=== PATIENT | male | born 1985 | race Caucasian/White ===

== ENCOUNTER 2023-09-14 03:34 | Day surgery (SDC) | payer OTHER, SELFPAY ==
[2023-09-03 14:57] VITALS: BMI 31.8
--- NOTE | 2023-09-03 15:02 | PC.NURSE ---
Report to the Outpatient Waiting Room, entrance under the green pavilion located off [facility], at time 0600 on date 09/14/23. Planned Procedure Time: 0730. Time changes happen often and if your time is changed the preop area will call you the afternoon before. - You and your visitor will be asked to self-screen and do not enter if you have any COVID symptoms. - A mask is optional within the hospital at this time. Patients may have clear liquids (water, carbonated beverages, clear teas, apple juice) until 3 hours prior to surgery with a maximum of 20 ounces. - No food from midnight until time of surgery Take the following medications with a SIP of water the morning of surgery: BUSPIRONE, METOPROLOL DO NOT STOP ANY OF YOUR OTHER PRESCRIPTION MEDICATIONS PRIOR TO SURGERY ?EXCEPT THE FOLLOWING Medications to discontinue per physician: N/A Date to take last dose: N/A Please no make-up, nail [facility] [place], hairspray, perfume, deodorant, or body powder the day of surgery. No jewelry (including any body piercings) or valuables the day of surgery, leave them at home. Please take a shower or bath the night before, or the morning of, surgery with an antibacterial soap. Wear comfortable, loose fitting clothing. - Jewelry must be removed prior to entering the operating room. Rings and piercings that are not removed may be cut off. - The hospital will not accept responsibility for valuables. - Please leave all valuables, including medications, at home the day of surgery. If you are going home after surgery, a licensed hazmat cdl driver must drive you home. - NO public transportation without another adult if you receive anesthesia. - We recommend that an adult stay with you for 24 hours following discharge. - We also recommend that you do not drive, make important decision, drink alcoholic beverages, or take any drugs that were not prescribed by your health care provider for at least 24 hours after your discharge time. Follow any additional instructions given to you from your surgeon. If you or anyone in your household have experienced Covid symptoms in the past week, please notify your surgeon or the nurse liaison at the phone number below for possible testing. Telephone instructions given to PT - ODALYS SCHULTZ and asked if any additional questions and then verbalized understanding. Patient advised to call surgeon office or pre surgery nurse liaison [phone] if any additional questions.
[2023-09-14] VITALS (8 sets, daily range): BP systolic 126–155; BP diastolic 71–106; PULSE 72–92; RESP 14–20; TEMP 36.2–36.6; O2SAT 97–100
[2023-09-14] MEDS: ACETAMINOPHEN 500 MG TABLET 1000 MG PO (06:36)
[2023-09-14] MEDS: LACTATED RINGERS 1,000 ML 30 ML IV CONT ×2 (06:40→09:05)
--- NOTE | 2023-09-14 07:09 | P.HP_ITS ---
H&P: HPI History of Present Illness Date/Time: 09/14/23 07:09 Chief Complaint: Left TM perforation Narrative: Left TM perforation Review of Systems Review of Systems: All systems reviewed & are unremarkable except as noted in HPI and below PMFSH Social History Social History Smoking status: Never smoker Alcohol intake: never Substance use: never Substance use type: does not use Living arrangements: with family Spiritual care concerns: No Meds Home Medications and Allergies Home Medications Medication Instructions Recorded Confirmed Type buspirone 30 mg tablet 30 mg PO DAILY 09/03/23 09/14/23 History losartan 100 mg tablet 100 mg PO DAILY 09/03/23 09/14/23 History metoprolol succinate 50 mg 50 mg PO DAILY 09/03/23 09/14/23 History tablet,extended release 24 hr omeprazole 20 mg tablet,delayed 20 mg PO DAILY 09/03/23 09/14/23 History release Allergies Allergy/AdvReac Type Severity Reaction Status Date / Time No Known Allergies Allergy Verified 09/14/23 06:22 Vital Signs Vital Signs - 24 hr 09/14/23 06:21 Temperature 36.6 C Pulse Rate 83 Respiratory Rate 20 Blood Pressure 150/106 H Pulse Oximetry 97 Oxygen Delivery Room Air Exam Narrative: 40-50% left TM perforation. No infectio n. rest of exam wnl Assessment and Plan Assessment and plan (1) Perforation of left tympanic membrane: Code(s): H72.92 - Unspecified perforation of tympanic membrane, left ear Status: Acute Assessment and Plan: Left TM perforation Plan Left tympanoplasty. r/b/a reviewed, pt understands and agrees to proceed. left ear marked. refer to outpt H&P for further detail.
--- NOTE | 2023-09-14 07:10 | WPDHPUPDATE1 ---
History and Physical Update Update Date/Time: 09/14/23 07:10 History and Physical has been reviewed, including an updated exam of the patient. There are NO changes in the patient's condition. Risks, benefits, and alternatives have been discussed and questions answered. Patient agrees to proceed with procedure.
--- NOTE | 2023-09-14 07:17 | WPDANESEPPF ---
Anes - Initial Pre Proc Eval Procedure: Operation Date: 09/14/23 07:30 Proposed Procedures p Left Ear Tympanoplasty - Benito Saunders MD Date/Time: 09/14/23 07:17 Surgeon: Benito Saunders MD Pre Op Diagnosis: Lt Ear Tympanic Perfor Patient Data Age: 38 Gender: M Height: 1.73 m Weight: 108.3 kg Last Vital Signs Temp 36.6 C 09/14/23 06:21 Pulse 83 09/14/23 06:21 Resp 20 09/14/23 06:21 BP 150/106 H 09/14/23 06:21 Pulse Ox 97 09/14/23 06:21 O2 Del Method Room Air 09/14/23 06:21 Allergies Allergy/AdvReac Type Severity Reaction Status Date / Time No Known Allergies Allergy Verified 09/14/23 06:22 Home Medications Medication Instructions Recorded Confirmed Type buspirone 30 mg tablet 30 mg PO DAILY 09/03/23 09/14/23 History losartan 100 mg tablet 100 mg PO DAILY 09/03/23 09/14/23 History metoprolol succinate 50 mg 50 mg PO DAILY 09/03/23 09/14/23 History tablet,extended release 24 hr omeprazole 20 mg tablet,delayed 20 mg PO DAILY 09/03/23 09/14/23 History release Patient hx anesthesia problems: none Family hx anesthesia problems: none Results Review: All pre-operative results and documents have been reviewed as part of the pre-operative evaluation. [facility] Social History Social History Smoking status: Never smoker Alcohol intake: never Substance use: never Substance use type: does not use Living arrangements: with family Spiritual care concerns: No Anes - Eval Final PreProcedure Day of Procedure 09/14/23 07:17 Patient weight: obese Heart: regular rate and rhythm Lungs: clear to auscultation Airway: Mallampati scale class II Neurological: alert and oriented Last oral intake: >/= 8 hours ASA classification: III Emergent: no Anesthetic plan: proceed Anesthesia type and monitoring: general LMA and standard monitoring Results Review: All pre-operative results and documents have been reviewed as part of the pre-operative evaluation. Informed Consent: The patient's anesthetic plan and its attendant risks and benefits were discussed with the patient/family/POA. Questions were solicited and answers provided to the satisfaction of the patient/family/POA.
[2023-09-14] MEDS: ceFAZolin 2 GM/D5W 50 ML 2 GM/50 ML BAG IVPB (07:28)
[2023-09-14] MEDS: CIPROFLOXACIN HCL 0.3% OP SOLN 2.5 ML BTL 4 DROP EACH EAR (07:54)
[2023-09-14] MEDS: LIDO 1%/EPINEPHRINE 1:100,000 50 ML VIAL INFILTRATE (07:55)
[2023-09-14] MEDS: EPINEPHrine HCL INJ 1 MG/ML AMPUL IRRIGATION (08:11)
--- NOTE | 2023-09-14 09:11 | P.OP_ITS ---
Procedure Note - Detailed Date of Procedure 09/14/23 Pre-op Diagnosis Lt Ear Tympanic Perfor Post-op Diagnosis Same Procedure Performed Left medial graft tympanoplasty via temporalis fascial graft Surgeon Benito Saunders MD Anesthesia General Indications Left TM perforation Findings Left posterior perforation, 40%, dry edges, ossicles intact Description of Procedure On the date of surgery, the patient was identified in the preoperative holding area.? The left ear was marked indicating the correct side of surgery.? They consented to surgery and was brought back to the operating room and placed under general anesthesia.? A timeout was performed verifying the correct patient identity and procedure to be performed.? The bed was rotated 180 degrees and a small amount of hair was trimmed from the left postauricular area.? They were then prepped and draped in standard fashion for left sided tympanoplasty. Attention first was directed through the ear canal.? Cerumen was removed under binocular microscopy and the perforation was examined and found to be 40-50% of the size of the tympanic membrane.? The middle ear space was dry.? The edges of the perforation were freshened using a madrid pick and microcup forceps.? Next, a 4 quadrant injection was performed with 1% lidocaine with 1:100k epinephrine.? The postauricular sulcus was also injected.? Using an angled and straight [place] blade, a vascular strip was elevated and tympanomeatal flap incisions were made.? The tympanomeatal flap was then elevated partially and a cotton ball soaked in 1:1000 epinephrine diluted with 10cc of saline was placed in the canal. Next, attention was directed behind the ear.? An incision was made in the post- auricular sulcus.? Using bovie electrocautery, dissection was performed through the subcutaneous tissues down to the level of the fascia.? The temporalis fascia was then identified and dissected free superficially and deep.? A 15 blade was used to incise through the fascia and then was elevated.? A 2x2cm window of fascia was then harvested, flattened on a samuel block and then placed in a graft press for 5 minutes, then opened to dry. While the graft was prepared, the tympanomeatal flap was elevated and the annulus was lifted out of the annular groove.? The middle ear space was entered with a pick and the annulus was fully elevated out of the groove and the tympanomeatal flap was completely elevated.? Several small pieces of gelfoam were placed in the middle ear space.? Next, the graft was? placed in the canal and in the middle ear space medial to the [place] tympanic membrane.? Some manipulation allowed it to cover the entire perforation.? Gelfoam was then packed in the middle ear space further to bulk out the graft.? Once satisfied with the positioning covering the entire perforation, the tympanomeatal flap and graft were laid down.? The ear canal was further packed with gelfoam to the catilaginous meatus.? The postauricular incision was then closed with 3-0 vicryl, 4-0 monocryl and d ermabond in a layered fashion.? The canal was filled with mupirocin ointment and a cotton ball was placed in the meatus.? The drapes were taken down and care of the patient was returned to anesthsia who woke them up in the OR and transferred to the PACU for recovery in stable condition without complication. Estimated Blood Loss 1 Drains No Packing No Pathology None sent Complications No immediate complications Condition Stable Disposition PACU
[2023-09-14] MEDS: oxyCODONE HCL (*CRX) 5 MG TAB IR PO (10:07)
== END 2023-09-14 10:30 | disposition home or self-care (01) ==
PROVIDERS: Visit Provider Otolaryngology
PROC: (CPT 69610; principal; 2023-09-14 07:30)
DX: H72.92 Unspecified perforation of tympanic membrane, left ear (principal); E66.9 Obesity, unspecified; Z68.36 Body mass index [BMI] 36.0-36.9, adult
CPT/HCPCS: 69610; 15769; A9270; J0171; J0690; J2250; J3010; J7120